=== PATIENT | male | born 1990 | race Two or more races ===

== ENCOUNTER 2019-09-06 02:20 | Emergency (ER) | payer SELFPAY ==
[~2019-09-06] VITALS: Ht 177.8 cm; Wt 99.8 kg
[2019-09-06 02:20] VITALS: BP 140/87
== END 2019-09-06 03:48 | disposition left against medical advice (07) ==
LOC: ER 03:39
DX: M79.602 Pain in left arm (principal); Z53.21 Procedure and treatment not carried out due to patient leaving prior to being seen by health care provider
CPT/HCPCS: 73090